=== PATIENT | female | born 1990 | race Caucasian/White ===

== ENCOUNTER 2017-10-22 21:22 | Inpatient (IN) | payer BC, OTHER ==
[2017-10-22] MEDS ORDERED: IPRATROPIUM-ALBUTEROL 3 ML NEB INHALATION STA ×3 (21:41→22:07)
[2017-10-22] MEDS ORDERED: methylPREDNISolone SOD SUCCI 125 MG/2 ML VIAL IV STA (21:53)
[2017-10-22] MEDS ORDERED: ONDANSETRON 4 MG/2 ML VIAL IVP STA (21:56)
[2017-10-22] MEDS ORDERED: SODIUM CHLORIDE 0.9% 1,000 ML IV STA ×2 (21:56→22:03)
--- NOTE | 2017-10-22 22:06 | ED ---
General Adult HPI - General Chief complaint: Shortness of Breath Stated complaint: Allergic Reaction Time Seen by Provider: 10/22/17 21:25 Source: patient, RN notes reviewed Mode of arrival: ambulatory Limitations: no limitations - History of Present Illness Initial comments: This is a 27-year-old female presents emergency part with a past medical history significant for asthma. Patient comes into the emergency department today with a 2 day history of shortness of breath or wheezing. Patient states she's had a typical asthmatic cough but no sputum production. Patient has no chest pain no palpitations. Patient denies any fever chills. Patient denies any headache patient denies numbness weakness. Patient denies abdominal pain patient denies nausea vomiting diarrhea. 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 Patient states she has been admitted for asthma but hasn't ever been intubated. - Related Data Home Medications Medication Instructions Recorded Confirmed Albuterol Inhaler [Ventolin Hfa 1 - 2 puff INHALATION RT-Q6H PRN 06/06/14 Inhaler] EPINEPHrine (Auto Inject) [Epipen] 0.3 mg IM ONCE PRN 06/06/14 10/22/17 Fluticasone/Salmeterol [Advair 1 puff INHALATION RT-BID 06/06/14 10/22/17 500-50 Diskus] Levalbuterol HCl [Xopenex 1.25 mg INHALATION RT-TID PRN 06/06/14 10/22/17 Nebulized] ALPRAZolam [Xanax] 0.25 mg PO DAILY PRN 10/22/17 10/22/17 ARIPiprazole [Abilify] 10 mg PO DAILY 10/22/17 10/22/17 Betamethasone Dipropionate 1 applic TOPICAL DAILY 10/22/17 10/22/17 [Diprolene AF 0.05% Cream] Cholecalciferol [Vitamin D3] 1,000 unit PO DAILY 10/22/17 10/22/17 [place]-3 Fatty Acids/Fish Oil [Fish 1 cap PO DAILY 10/22/17 10/22/17 Oil 1,000 mg Softgel] Sertraline [Zoloft] 100 mg PO DAILY 10/22/17 10/22/17 methylPREDNISolone Dose Pack 4 mg PO DIRECTED PRN 10/22/17 10/22/17 [Medrol Dose Pack] Previous Rx's Medication Instructions Recorded Montelukast [Singulair] 10 mg PO HS #30 tab 06/08/14 Allergies Allergy/AdvReac Type Severity Reaction Status Date / Time cefixime [From Suprax] Allergy Severe Anaphylaxis Verified 10/22/17 21:27 egg Allergy Severe Anaphylaxis Verified 10/22/17 21:27 Latex, Natural Rubber Allergy Severe Anaphylaxis Verified 10/22/17 21:27 monosodium glutamate Allergy Severe Anaphylaxis Verified 10/22/17 21:27 peanut Allergy Severe Anaphylaxis Verified 10/22/17 21:27 soy Allergy Severe Anaphylaxis Verified 10/22/17 21:27 tree nut Allergy Severe Anaphylaxis Verified 10/22/17 21: beans Allergy Severe Anaphylaxis Uncoded 10/22/17 21:27 dairy Allergy Severe Anaphylaxis Uncoded 10/22/17 21:27 fragrence Allergy Intermediate Wheezing Uncoded 10/22/17 21:27 Review of Systems ROS Statement: Those systems with pertinent positive or pertinent negative responses have been documented in the HPI. ROS Other: All systems not noted in ROS Statement are negative. Past Medical History Past Medical History: Asthma, COPD, Seizure Disorder History of Any Multi-Drug Resistant Organisms: None Reported Additional Past Surgical History / Comment(s): oral Additional Past Anesthesia/Blood Transfusion Reaction / Comment(s): none Past Psychological History: Anxiety Smoking Status: Never smoker Past Alcohol Use History: Occasional Past Drug Use History: None Reported - Past Family History Mother Family Medical History: Diabetes Mellitus, Hypertension General Exam - General Exam Comments Initial Comments: GENERAL: Patient is well-developed and well-nourished. Patient is nontoxic and well- hydrated and is in mild distress. ENT: Neck is soft and supple. No significant lymphadenopathy is noted. Oropharynx is clear. Moist mucous membranes. Neck has full range of motion without eliciting any pain. EYES: The sclera were anicteric and conjunctiva were pink and moist. Extraocular movements were intact and pupils were equal round and reactive to light. Eyelids were unremarkable. PULMONARY: Patient is diffusely wheezing CARDIOVASCULAR: There is a regular rate and rhythm without any murmurs gallops or rubs. ABDOMEN: Soft and nontender with normal bowel sounds. No palpable organomegaly was noted. There is no palpable pulsatile mass. SKIN: Skin is clear with no lesions or rashes and otherwise unremarkable. NEUROLOGIC: Patient is alert and oriented x3. Cranial nerves II through XII are grossly intact. Motor and sensory are also intact. Normal speech, volume and content. Symmetrical smile. MUSCULOSKELETAL: Normal extremities with adequate strength and full range of motion. LYMPHATICS: No significant lymphadenopathy is noted PSYCHIATRIC: Normal psychiatric evaluation. Limitations: no limitations Course Vital Signs 10/22/17 10/22/17 10/22/17 21:23 21:38 21:44 Temperature 97.4 F L Pulse Rate 115 H 124 H 114 H Respiratory 26 H 26 H Rate Blood Pressure 152/114 150/93 O2 Sat by Pulse 95 90 L Oximetry 10/22/17 10/22/17 10/22/17 21:54 21:55 22:03 Temperature Pulse Rate 118 H 116 H 113 H Respiratory 24 Rate Blood Pressure 150/93 O2 Sat by Pulse 100 Oximetry 10/22/17 10/22/17 10/22/17 22:05 22:06 22:21 Temperature Pulse Rate 118 H 108 H 104 H Respiratory 22 Rate Blood Pressure 129/54 O2 Sat by Pulse 97 Oximetry 10/22/17 22:22 Temperature Pulse Rate 104 H Respiratory Rate Blood Pressure O2 Sat by Pulse Oximetry Medical Decision Making - Medical Decision Making Chest x-ray showed no acute abnormality. Patient had 3 breathing treatments and Solu-Medrol I went back in the room to reevaluate if she continued to wheeze diffusely. Patient states she did feel somewhat better but was not at her baseline. I spoke with Dr. Lino agreed to admit the patient admitted the patient. I continued albuterol Solu-Medrol the floor - Lab Data Result diagrams: 10/22/17 22:01 Lab Results 10/22/17 Range/Units 22:01 WBC 15.7 H (3.8-10.6) k/uL RBC 4.58 (3.80-5.40) m/uL Hgb 14.4 (11.4-16.0) gm/dL Hct 42.3 (34.0-46.0) % MCV 92.5 (80.0-100.0) fL MCH 31.5 (25.0-35.0) pg MCHC 34.1 (31.0-37.0) g/dL RDW 12.8 (11.5-15.5) % Plt Count 243 (150-450) k/uL Neutrophils % 72 % Lymphocytes % 17 % Monocytes % 4 % Eosinophils % 6 % Basophils % 1 % Neutrophils # 11.2 H (1.3-7.7) k/uL Lymphocytes # 2.7 (1.0-4.8) k/uL Monocytes # 0.6 (0-1.0) k/uL Eosinophils # 1.0 H (0-0.7) k/uL Basophils # 0.1 (0-0.2) k/uL Disposition Clinical Impression: Status asthmaticus Disposition: ADMITTED IP TO THIS HOSP Referrals: Gal Desai MD [Primary Care Provider] - 1-2 days Time of Disposition: 22:36
[2017-10-22 22:13] LABS: Basophils # (A) 0.1 k/uL (0-0.2); Basophils % (A) 1 %; Eosinophils % (A) 6 %; HCT 42.3 % (34.0-46.0); HGB 14.4 gm/dL (11.4-16.0); Lymphocytes # (A) 2.7 k/uL (1.0-4.8); Lymphocytes % (A) 17 %; MCH 31.5 pg (25.0-35.0); MCHC 34.1 g/dL (31.0-37.0); MCV 92.5 fL (80.0-100.0); Monocytes # (A) 0.6 k/uL (0-1.0); Monocytes % (A) 4 %; Neutrophils # (A) 11.2 k/uL (1.3-7.7); Neutrophils % (A) 72 %; Platelet Count 243 k/uL (150-450); RBC 4.58 m/uL (3.80-5.40); RDW 12.8 % (11.5-15.5); WBC 15.7 k/uL (3.8-10.6)
[2017-10-22 22:35] LABS: ALT 26 U/L (9-52); AST 23 U/L (14-36); Albumin 4.3 g/dL (3.5-5.0); Alkaline Phosphatase 89 U/L (38-126); Anion Gap 14 mmol/L; Blood Urea Nitrogen 9 mg/dL (7-17); Calcium 9.7 mg/dL (8.4-10.2); Carbon Dioxide 23 mmol/L (22-30); Chloride 107 mmol/L (98-107); Glucose 111 mg/dL (74-99); Magnesium 1.8 mg/dL (1.6-2.3); Potassium 3.7 mmol/L (3.5-5.1); Sodium 144 mmol/L (137-145); Total Bilirubin 0.6 mg/dL (0.2-1.3); Total Protein 7.3 g/dL (6.3-8.2)
--- NOTE | 2017-10-22 22:45 | XR ---
EXAMINATION TYPE: XR chest 2V DATE OF EXAM: 10/22/2017 COMPARISON: 06/06/2014 HISTORY: Difficulty breathing TECHNIQUE: Frontal and lateral views of the chest are obtained. FINDINGS: Heart and mediastinum are normal. Lungs are clear. Diaphragm is normal. Bony thorax appear s normal. IMPRESSION: Normal chest. No change.
[2017-10-22 23:48] VITALS: BMI 37.0
[2017-10-22] MEDS: SODIUM CHLORIDE 0.9% 1,000 ML IV ONE (23:49)
[2017-10-22] MEDS: IPRATROPIUM-ALBUTEROL 3 ML NEB INHALATION SCH (23:50)
[2017-10-23] MEDS: IPRATROPIUM-ALBUTEROL 3 ML NEB INHALATION SCH ×4 (03:53→17:16)
[2017-10-23] MEDS: methylPREDNISolone SOD SUCCI 125 MG/2 ML VIAL IV SCH ×3 (06:27→18:07)
[2017-10-23 10:00] VITALS: RESP 20
[2017-10-23 11:43] VITALS: TEMP 97.6
[2017-10-23] MEDS ORDERED: ALPRAZolam 0.25 MG TAB PO PRN (11:44)
[2017-10-23] MEDS ORDERED: ARIPiprazole 10 MG TAB PO SCH (11:45)
[2017-10-23] MEDS: SODIUM CHLORIDE 0.9% 1,000 ML IV ONE (11:48)
[2017-10-23 16:21] VITALS: BP 120/78
[2017-10-23] MEDS ORDERED: ENOXAPARIN 40 MG/0.4 ML SYRINGE SQ SCH (18:15)
[2017-10-23 18:17] VITALS: PULSE 98
--- NOTE | 2017-10-23 19:05 | HP ---
HISTORY AND PHYSICAL HISTORY AND PHYSICAL AND DISCHARGE SUMMARY: DATE OF ADMISSION: 10/22/2017. DATE OF DISCHARGE: 10/23/2017. DATE OF SERVICE: 10/23/2017 PRESENTING COMPLAINT: Wheezing, short of breath. HISTORY OF PRESENTING COMPLAINT: This is a pleasant 27-year-old patient who is here with her mother, of Dr. Desai. The patient has been diagnosed asthma since her childhood. Recently the patient started doing vaping and presented with 24 hours of increasing amount of shortness of breath, wheezing, cough. No sputum. No fever. No chills. At home, patient does take Advair for maintenance. The patient also got anxiety depression, which is controlled. The patient was given bronchodilators, IV steroids to which she started feeling better and responded rather well. REVIEW OF SYSTEMS: CONSTITUTIONAL: None. HEENT: None. RESPIRATORY: As above. CARDIOVASCULAR: None. GASTROINTESTINAL: Denies. GENITOURINARY: None. MUSCULOSKELETAL: None. DERMATOLOGICAL: None. HEMATOLOGIC: None. LYMPHATIC: None. PSYCHIATRY: As above. NEUROLOGICAL: None. PAST MEDICAL HISTORY: Seizure disorder as a child, not anymore; anxiety, depression, controlled, asthma. PAST SURGICAL HISTORY: None. SOCIAL HISTORY: Patient does not smoke cigarettes, does vaping, lives with her mother, stays at home. Alcohol occasionally. FAMILY HISTORY: Diabetes, hypertension. HOME MEDICATIONS: 1. Abilify 10 mg a day. 2. Zoloft 100 mg a day. 3. Ventolin HFA 1 or 2 puffs every 6 hours p.r.n. 4. Fish oil 1 capsule p.o. daily. 5. Vitamin D3 1000 units p.o. daily. 6. Diprolene topical daily. 7. Medrol Dosepak. 8. EpiPen 0.3 IM p.r.n. 9. Xopenex 1.25 t.i.d. p.r.n. 10.Advair 500/50 one puff b.i.d. 11.Xanax 0.25 p.o. daily p.r.n. 12.Singulair 10 mg q.h.s. ALLERGIES: To SUPRAX, EGG, LATEX, MONOSODIUM GLUTAMATE, PEANUTS, SOY, TREE NUT MARINO, DAIRY FRAGRANCE. EXAMINATION: Temperature 97.6, pulse 86, respirations 20, blood pressure 120/78, pulse ox 92% on room air. GENERAL APPEARANCE: Well built, BMI 37. Lying in bed, not in distress. EYES: Pupils equal. Conjunctivae normal. HEENT: External appearance of nose and ears normal. Oral cavity normal. NECK: JVD not raised. Mass not palpable. RESPIRATORY: Effort increased. LUNGS: Some expiratory wheezing. CARDIOVASCULAR: First and second sounds normal. No edema. ABDOMEN: Soft, nontender. Liver and spleen not palpable. LYMPHATIC: No lymph node palpable in neck or axillae. PSYCHIATRY: Alert and oriented x3. Mood and affect normal. NEUROLOGICAL: Pupils equal. Cranial nerve grossly intact. Power and sensation grossly intact. DERMATOLOGICAL: Evidence of eczema in the fingers. INVESTIGATIONS: White count 15.7, hemoglobin 14.4. Potassium 3.7. ASSESSMENT: 1. Acute moderate obstructive asthma exacerbation by vaping. 2. Obesity, BMI 37. 3. Anxiety, depression, not otherwise specified. 4. Leukocytosis from steroids. PLAN: The patient admitted, put on nebulized bronchodilators, IV steroids to which she has responded rather well. I had a long talk with the patient's mother about the ill effects of vaping. The patient did state that she will stop doing the same. Will discharge the patient home later this evening with a rapid taper of steroids. DISPOSITION: Home. Follow up with Dr. Desai in 3 days. MMPHILL / MICHELLEN: [phone] /
[2017-10-23] MEDS ORDERED: MONTELUKAST 10 MG TAB PO SCH (21:00)
[2017-10-24] MEDS ORDERED: SERTRALINE 100 MG TAB PO SCH (09:00)
[2017-10-24] MEDS ORDERED: BETAMETHASONE DIPROPIONATE 0.05% CREAM 15 GM TUBE TOPICAL SCH (09:00)
== END 2017-10-23 19:07 | disposition home or self-care (01) | DRG 203 ==
LOC: EC 21:22 → 6PED 22:36
PROVIDERS: ADMIT Hospitalist; ATTEND Hospitalist
DX: J45.902 Unspecified asthma with status asthmaticus (principal); D72.829 Elevated white blood cell count, unspecified; T38.0X5A Adverse effect of glucocorticoids and synthetic analogues, initial encounter; E66.9 Obesity, unspecified; Z68.37 Body mass index [BMI] 37.0-37.9, adult; F17.290 Nicotine dependence, other tobacco product, uncomplicated; F41.8 Other specified anxiety disorders; Z77.29 Contact with and (suspected) exposure to other hazardous substances; Z79.51 Long term (current) use of inhaled steroids; Z79.899 Other long term (current) drug therapy; Z86.69 Personal history of other diseases of the nervous system and sense organs; Z83.3 Family history of diabetes mellitus; Z82.49 Family history of ischemic heart disease and other diseases of the circulatory system; Z88.1 Allergy status to other antibiotic agents; Z91.012 Allergy to eggs; Z91.02 Food additives allergy status; Z91.040 Latex allergy status; Z91.011 Allergy to milk products; Z91.010 Allergy to peanuts; Z91.018 Allergy to other foods; Z91.048 Other nonmedicinal substance allergy status
CPT/HCPCS: 36415; 71046; 80053; 83735; 85025; 94640; 94760; 96361; 96374; 99285

== ENCOUNTER 2023-08-06 19:35 | Emergency (ER) | payer SELFPAY ==
--- NOTE | 2023-08-06 20:00 | ED ---
Extremity Problem HPI - General Source: patient, RN notes reviewed <Shannon Quiñonez - Last Filed: 08/06/23 19:58> <Abe Ge - Last Filed: 08/06/23 20:51> - General Stated complaint: extremity injury Time Seen by Provider: 08/06/23 19:58 - History of Present Illness Initial comments: Patient is a 33-year-old female presented ER with chief complaint of left thumb injury. Patient states she pinched her thumb in between the wall and the refrigerator. Patient is now stating it is numb. Denies any other injuries. (Shannon Quiñonez) 33-year-old female presents to the ED with a chief complaint of left thumb injury. Patient states that she actually got her thumb caught between the wall and the fridge door. Now notes pain and subjective numbness in her left thumb. No other injuries at this time. No other complaints. (Abe Ge) - Related Data Home Medications Medication Instructions Recorded Confirmed Albuterol Inhaler [Ventolin Hfa 1 - 2 puff INHALATION RT-Q6H PRN 06/06/14 10/22/17 Inhaler] EPINEPHrine (Auto Inject) [Epipen] 0.3 mg IM ONCE PRN 06/06/14 10/22/17 Fluticasone Propion/Salmeterol 1 puff INHALATION RT-BID 06/06/14 10/22/17 [Advair 500-50 Diskus] levalbuterol HCL [Xopenex 1.25 mg INHALATION RT-TID PRN 06/06/14 10/22/17 Nebulized] ALPRAZolam [Xanax] 0.25 mg PO DAILY PRN 10/22/17 10/22/17 ARIPiprazole [Abilify] 10 mg PO DAILY 10/22/17 10/22/17 Betamethasone Dipropionate 1 applic TOPICAL DAILY 10/22/17 10/22/17 [Diprolene 0.05% Cream (GEQ)] Cholecalciferol [Vitamin D3 (25 1,000 unit PO DAILY 10/22/17 10/22/17 Mcg = 1000 Iu)] [place]-3 Fatty Acids/Fish Oil [Fish 1 cap PO DAILY 10/22/17 10/22/17 Oil 1,000 mg Softgel] Sertraline [Zoloft] 100 mg PO DAILY 10/22/17 10/22/17 Previous Rx's Medication Instructions Recorded Montelukast [Singulair] 10 mg PO HS #30 tab 06/08/14 predniSONE 0 mg PO DIRECTED #10 tab 10/23/17 Allergies Allergy/AdvReac Type Severity Reaction Status Date / Time cefixime [From Suprax] Allergy Severe Anaphylaxis Verified 10/22/17 23:53 egg Allergy Severe Anaphylaxis Verified 10/22/17 23:53 Latex, Natural Rubber Allergy Severe Anaphylaxis Verified 10/22/17 23:53 monosodium glutamate Allergy Severe Anaphylaxis Verified 10/22/17 23:53 peanut Allergy Severe Anaphylaxis Verified 10/22/17 23:53 soy Allergy Severe Anaphylaxis Verified 10/22/17 23:53 tree nut Allergy Severe Anaphylaxis Verified 10/22/17 23:53 beans Allergy Severe Anaphylaxis Uncoded 10/22/17 23:53 dairy Allergy Severe Anaphylaxis Uncoded 10/22/17 23:53 fragrence Allergy Intermediate Wheezing Uncoded 10/22/17 23:53 Review of Systems ROS Other: All systems not noted in ROS Statement are negative. <Shannon Quiñonez - Last Filed: 08/06/23 19:58> ROS Other: All systems not noted in ROS Statement are negative. <Abe Ge - Last Filed: 08/06/23 20:51> ROS Statement: Those systems with pertinent positive or pertinent negative responses have been documented in the HPI. Past Medical History Past Medical History: Asthma, COPD, Seizure Disorder Additional Past Medical History / Comment(s): Last seizure was in high school. History of Any Multi-Drug Resistant Organisms: None Reported Additional Past Surgical History / Comment(s): oral Additional Past Anesthesia/Blood Transfusion Reaction / Comment(s): none Past Psychological History: Anxiety Past Alcohol Use History: Occasional Past Drug Use History: None Reported - Past Family History Mother Family Medical History: Diabetes Mellitus, Hypertension <Shannon Quiñonez - Last Filed: 08/06/23 19:58> General Exam <Shannon Quiñonez - Last Filed: 08/06/23 19:58> General appearance: alert, in no apparent distress Eye exam: Present: normal appearance ENT exam: Present: normal exam Neck exam: Present: normal inspection Respiratory exam: Present: normal lung sounds bilaterally Cardiovascular Exam: Present: regular rate, normal rhythm GI/Abdominal exam: Present: soft Extremities exam: Present: other (Left first digit has a subungual hematoma. Full flexion extension and opposition. Sensation intact.) Neurological exam: Present: alert, oriented X3 Skin exam: Present: warm, dry <Abe Ge - Last Filed: 08/06/23 20:51> - General Exam Comments Initial Comments: Visual Physical Exam Vital signs reviewed General: Well-appearing, nontoxic, no acute distress. Head: Normocephalic, atraumatic Eyes: PERRLA, EOMI ENT: Airway patent Chest: Nonlabored breathing Skin: No visual rash, normal skin tone Neuro: Alert and oriented 3 Musculoskeletal: Left thumb is bruised and swollen. (Shannon Quiñonez) Course Vital Signs 08/06/23 20:01 Temperature 97.8 F Pulse Rate 87 Respiratory 18 Rate Blood Pressure 146/83 O2 Sat by Pulse 98 Oximetry Medical Decision Making <Shannon Quiñonez - Last Filed: 08/06/23 19:58> <Abe Ge - Last Filed: 08/06/23 20:51> - Medical Decision Making I performed the quick note portion of this chart. Electronically signed Shannon mclaughlin PA-C (Shannon Quiñonez) Was pt. sent in by a medical professional or institution (FERDINAND Childers, OPERATIONS COORDINATOR, urgent care, hospital, or longterm...) When possible be specific @ -No Did you speak to anyone other than the patient for history (EMS, parent, family, police, friend...)? What history was obtained from this source @ -No Did you review nursing and triage notes (agree or disagree)? Why? @ -I reviewed and agree with nursing and triage notes Were old charts reviewed (outside hosp., previous admission, EMS record, old EKG, old radiological studies, urgent care reports/EKG's, longterm records)? Report findings @ -No old charts were reviewed Differential Diagnosis (chest pain, altered mental status, abdominal pain women, abdominal pain men, vaginal bleeding, weakness, fever, dyspnea, syncope, headache, dizziness, GI bleed, back pain, seizure, CVA, palpatations, mental health, musculoskeletal)? @ -Differential Musculoskeletal Muscular strain, contusion, ligament sprain, fracture, arthritis, septic arthritis, bursitis, cellulitis, muscle spasm, nerve compression, DVT, arterial occlusion, herpes zoster, electrolyte abnormality, tumor.... This is not meant to be in all inclusive list EKG interpreted by me (3pts min.). @ -None X-rays interpreted by me (1pt min.). @ -X-ray of the left thumb interpreted me showing no evidence of acute finding. CT interpreted by me (1pt min.). @ -None done U/S interpreted by me (1pt. min.). @ -None done What testing was considered but not performed or refused? (CT, X-rays, U/S, labs)? Why? @ -None What meds were considered but not given or refused? Why? @ -None Did you discuss the management of the patient with other professionals (professionals i.e. , PA, OPERATIONS COORDINATOR, lab, RT, psych nurse, group social worker, divider operator, teacher, classification officer, trimming caser)? Give summary @ -No Was smoking cessation discussed for >3mins.? @ -No Was critical care preformed (if so, how long)? @ -No Were there social determinants of health that impacted care today? How? (Homelessness, low income, unemployed, alcoholism, drug addiction, transportation, low edu. Level, literacy, decrease access to med. care, penitentiary, rehab)? @ -No Was there de-escalation of care discussed even if they declined (Discuss DNR or withdrawal of care, Hospice)? DNR status @ -No What co-morbidities impacted this encounter? (DM, HTN, Smoking, COPD, CAD, Cancer, CVA, ARF, Chemo, Hep., AIDS, mental health diagnosis, sleep apnea, morbid obesity)? @ -None Was patient admitted / discharged? Hospital course, mention meds given and route, prescriptions, significant lab abnormalities, going to OR and other pertinent info. @ -Discharge 33-year-old female presents to the ED with a chief complaint of left thumb injury after smashing it between the fridge door and the wall. Exam shows full flexion extension and opposition of the thumb. There is a subungual hematoma. Patient was offered trepanation however declined. Discharged home in stable condition. Advise follow-up with PCP. Discussed return precaution patient verbalized agreement. Undiagnosed new problem with uncertain prognosis? @ -No Drug Therapy requiring intensive monitoring for toxicity (Heparin, Nitro, Insulin, Cardizem)? @ -No Were any procedures done? @ -No Diagnosis/symptom? @ -Left thumb injury, subungual hematoma Acute, or Chronic, or Acute on Chronic? @ -Acute Uncomplicated (without systemic symptoms) or Complicated (systemic symptoms)? @ -Uncomplicated Side effects of treatment? @ -No Exacerbation, Progression, or Severe Exacerbation? @ -No Poses a threat to life or bodily function? How? (Chest pain, [place], [place], pneumonia, PE, COPD, DKA, ARF, appy, cholecystitis, CVA, Diverticulitis, Homicidal, Suicidal, threat to staff... and all critical care pts) @ -No (Abe Ge) Disposition <Shannon Quiñonez - Last Filed: 08/06/23 19:58> Is patient prescribed a controlled substance at d/c from ED?: No Time of Disposition: 20:47 <Abe Ge - Last Filed: 08/06/23 20:51> Clinical Impression: Subungual hematoma Disposition: HOME SELF-CARE Condition: Good Instructions (If sedation given, give patient instructions): Subungual Hematoma (ED) Additional Instructions: Please return to the Emergency Department if symptoms worsen or any other concerns. Please follow-up with your PCP Referrals: None,Stated [Primary Care Provider] - 1-2 days
--- NOTE | 2023-08-06 20:08 | XR ---
EXAMINATION TYPE: XR finger LT DATE OF EXAM: 08/06/2023 8:00 PM CLINICAL INDICATION:Female, 33 years old with history of crush injury; COMPARISON: None TECHNIQUE: XR finger LT Frontal, lateral and oblique views were obtained. FINDINGS: Normal alignment of the visualized joints. No acute osseous pathology is identified. No e vidence of soft tissue swelling. IMPRESSION: No acute osseous pathology.
[2023-08-06 20:12] VITALS: BP 146/83; PULSE 87; RESP 18; TEMP 97.8
== END 2023-08-06 20:55 | disposition home or self-care (01) ==
LOC: EC 19:35
DX: S60.112A Contusion of left thumb with damage to nail, initial encounter (principal); J44.89 Other specified chronic obstructive pulmonary disease; F41.9 Anxiety disorder, unspecified; Z79.899 Other long term (current) drug therapy; Z79.51 Long term (current) use of inhaled steroids; Z91.012 Allergy to eggs; Z91.040 Latex allergy status; Z91.010 Allergy to peanuts; Z91.018 Allergy to other foods; Z88.8 Allergy status to other drugs, medicaments and biological substances; W23.0XXA Caught, crushed, jammed, or pinched between moving objects, initial encounter
CPT/HCPCS: 99283

== ENCOUNTER 2024-06-04 19:08 | Inpatient (IN) | payer OTHER ==
--- NOTE | 2024-06-04 19:16 | ED ---
SOB HPI - General Stated Complaint: LEYDI Time Seen by Provider: 06/04/24 19:12 Source: RN notes reviewed, old records reviewed Mode of arrival: EMS Limitations: physical limitation (On BiPAP) - History of Present Illness Initial Comments: This is a 34-year-old female with respiratory failure coming, BiPAP treatment despite 10+ breathing treatments at home tonight secondary to underlying asthma patient has worsening respiratory distress increasing work of breathing and a poor historian secondary to BiPAP condition currently MD Complaint: shortness of breath, chest pain, "asthma attack", anxiety -: hour(s) Severity: severe Severity scale (1-10): 10 Consistency: constant Improves With: nothing Known History Of: COPD, asthma Context: recent URI, anxiety, recent illness Associated Symptoms: cough, sputum production Treatments Prior to Arrival: bronchodilator, NIPPV - Related Data Home Medications Medication Instructions Recorded Confirmed Albuterol Inhaler [Ventolin Hfa 1 - 2 puff INHALATION RT-Q6H PRN 06/06/14 10/22/17 Inhaler] EPINEPHrine (Auto Inject) [Epipen] 0.3 mg IM ONCE PRN 06/06/14 10/22/17 Fluticasone Propion/Salmeterol 1 puff INHALATION RT-BID 06/06/14 10/22/17 [Advair 500-50 Diskus] levalbuterol HCL [Xopenex 1.25 mg INHALATION RT-TID PRN 06/06/14 10/22/17 Nebulized] ALPRAZolam [Xanax] 0.25 mg PO DAILY PRN 10/22/17 10/22/17 ARIPiprazole [Abilify] 10 mg PO DAILY 10/22/17 10/22/17 Betamethasone Dipropionate 1 applic TOPICAL DAILY 10/22/17 10/22/17 [Betamethasone Dipropionate 0.05% Cream] Cholecalciferol [Vitamin D3 (25 1,000 unit PO DAILY 10/22/17 10/22/17 Mcg = 1000 Iu)] [place]-3 Fatty Acids/Fish Oil [Fish 1 cap PO DAILY 10/22/17 10/22/17 Oil 1,000 mg Softgel] Sertraline [Zoloft] 100 mg PO DAILY 10/22/17 10/22/17 Previous Rx's Medication Instructions Recorded Montelukast [Singulair] 10 mg PO HS #30 tab 06/08/14 predniSONE 0 mg PO DIRECTED #10 tab 10/23/17 Allergies Allergy/AdvReac Type Severity Reaction Status Date / Time cefixime [From Suprax] Allergy Severe Anaphylaxis Verified 10/22/17 23:53 egg Allergy Severe Anaphylaxis Verified 10/22/17 23:53 Latex, Natural Rubber Allergy Severe Anaphylaxis Verified 10/22/17 23:53 monosodium glutamate Allergy Severe Anaphylaxis Verified 10/22/17 23:53 peanut Allergy Severe Anaphylaxis Verified 10/22/17 23:53 soy Allergy Severe Anaphylaxis Verified 10/22/17 23:53 tree nut Allergy Severe Anaphylaxis Verified 10/22/17 23:53 beans Allergy Severe Anaphylaxis Uncoded 10/22/17 23:53 dairy Allergy Severe Anaphylaxis Uncoded 10/22/17 23:53 fragrence Allergy Intermediate Wheezing Uncoded 10/22/17 23:53 Review of Systems ROS Statement: Those systems with pertinent positive or pertinent negative responses have been documented in the HPI. ROS Other: All systems not noted in ROS Statement are negative. Past Medical History Past Medical History: Asthma, COPD, Seizure Disorder Additional Past Medical History / Comment(s): Last seizure was in high school. History of Any Multi-Drug Resistant Organisms: None Reported Additional Past Surgical History / Comment(s): oral Additional Past Anesthesia/Blood Transfusion Reaction / Comment(s): none Past Psychological History: Anxiety Past Alcohol Use History: Occasional Past Drug Use History: None Reported - Past Family History Mother Family Medical History: Diabetes Mellitus, Hypertension General Exam General appearance: alert, anxious, in distress Head exam: Present: atraumatic, normocephalic, normal inspection Eye exam: Present: normal appearance, PERRL, EOMI. Absent: scleral icterus, conjunctival injection, periorbital swelling ENT exam: Present: normal exam, mucous membranes moist Neck exam: Present: normal inspection. Absent: tenderness, meningismus, lymphadenopathy Respiratory exam: Present: wheezes, accessory muscle use. Absent: respiratory distress, rales, rhonchi, stridor Cardiovascular Exam: Present: normal rhythm, tachycardia, normal heart sounds. Absent: systolic murmur, diastolic murmur, rubs, gallop, clicks GI/Abdominal exam: Present: soft, normal bowel sounds. Absent: distended, tenderness, guarding, rebound, rigid Extremities exam: Present: normal inspection, full ROM, normal capillary refill. Absent: tenderness, pedal edema, joint swelling, calf tenderness Back exam: Present: normal inspection Neurological exam: Present: alert, oriented X3, CN II-XII intact Psychiatric exam: Present: normal affect, normal mood Skin exam: Present: warm, dry, intact, normal color. Absent: rash Course Vital Signs 06/04/24 06/04/24 06/04/24 19:09 19:12 19:26 Temperature 100.0 F H Pulse Rate 147 H 147 H Respiratory 34 H Rate Blood Pressure 138/105 O2 Sat by Pulse 100 Oximetry Fraction of 35 Inspired Oxygen (FIO2) 06/04/24 06/04/24 19:39 19:54 Temperature Pulse Rate 149 H 138 H Respiratory 37 H Rate Blood Pressure 108/93 O2 Sat by Pulse 100 Oximetry Fraction of Inspired Oxygen (FIO2) - Reevaluation(s) Reevaluation #1: 06/04/24 19:15 Medical records reviewed Reevaluation #2: 06/04/24 20:22 Patient still in significant respiratory distress despite BiPAP treatment Reevaluation #3: 06/04/24 20:23 Patient informed of results questions answered Reevaluation #4: Was pt. sent in by a medical professional or institution (, PA, REAL ESTATE ASSET MANAGER, urgent care, hospital, or senior care...) When possible be specific @ -no Did you speak to anyone other than the patient for history (EMS, parent, family, police, friend...)? What history was obtained from this source @ -no Did you review nursing and triage notes (agree or disagree)? Why? @ -agree Are old charts reviewed (outside hosp., previous admission, EMS record, old EKG, old radiological studies, urgent care reports/EKG's, senior care records)? Report findings @ -yes Differential Diagnosis (chest pain, altered mental status, abdominal pain women, abdominal pain men, vaginal bleeding, weakness, fever, dyspnea, syncope, headache, dizziness, GI bleed, back pain, seizure, CVA, palpatations, mental health, musculoskeletal)? @ -prior EKG interpreted by me (3pts min.). @ -yes X-rays interpreted by me (1pt min.). @ -yes negative for acute disease CT interpreted by me (1pt min.). @ -no U/S interpreted by me (1pt. min.). @ -no What testing was considered but not performed or refused? (CT, X-rays, U/S, lab s)? Why? @ -none What meds were considered but not given or refused? Why? @ -none Did you discuss the management of the patient with other professionals (professionals i.e. , PA, REAL ESTATE ASSET MANAGER, lab, RT, psych nurse, social studies teacher, operator bearer systems, teacher, corporate development officer, nurse case manager)? Give summary @ -no Was smoking cessation discussed for >3mins.? @ -no Was critical care preformed (if so, how long)? @ -no Were there social determinants of health that impacted care today? How? (Homelessness, low income, unemployed, alcoholism, drug addiction, transportation, low edu. Level, literacy, decrease access to med. care, senior care, rehab)? @ -none Was there de-escalation of care discussed even if they declined (Discuss DNR or withdrawal of care, Hospice)? DNR status @ -no What co-morbidities impacted this encounter? (DM, HTN, Smoking, COPD, CAD, Cancer, CVA, ARF, Chemo, Hep., AIDS, mental health diagnosis, sleep apnea, morbid obesity)? @ -none Was patient admitted / discharged? Hospital course, mention meds given and route, prescriptions, significant lab abnormalities, going to OR and other pertinent info. @ - Undiagnosed new problem with uncertain prognosis? @ -no Drug Therapy requiring intensive monitoring for toxicity (Heparin, Nitro, Insulin, Cardizem)? @ -no Were any procedures done? @ -no Diagnosis/symptom? @ - Acute, or Chronic, or Acute on Chronic? @ -Acute Uncomplicated (without systemic symptoms) or Complicated (systemic symptoms)? @ -Complicated Side effects of treatment? @ -no Exacerbation, Progression, or Severe Exacerbation? @ -exacerbation Poses a threat to life or bodily function? How? (Chest pain, [place], [place], pneumonia, PE, COPD, DKA, ARF, appy, cholecystitis, CVA, Diverticulitis, Homicidal, Suicidal, threat to staff... and all critical care pts) @ -yes Reevaluation #5: Differential Dyspnea: Coronary syndrome, arrhythmia, tamponade, asthma, COPD, pulmonary embolism, pneumonia, pneumothorax, pulmonary effusion, anaphylaxis, diabetic ketoacidosis, flailed chest, pulmonary contusion, diaphragmatic rupture, anemia, neuromuscular, this is not meant to be an all-inclusive list. - Consultations Consultation #1: Spoke with [facility] who agrees to admit this patient Medical Decision Making - Medical Decision Making 34 female with acute respiratory failure asthmatic respiratory failure, patient is acidotic with increased pCO2, patient will be admitted for continued BiPAP support - Lab Data Result diagrams: 06/04/24 19:18 06/04/24 19:18 Lab Results 06/04/24 06/04/24 06/04/24 Range/Units 19:18 19:18 19:18 WBC 13.7 H (3.8-10.6) k/uL RBC 4.77 (3.80-5.40) m/uL Hgb 14.8 (11.4-16.0) gm/dL Hct 44.0 (34.0-46.0) % MCV 92.3 (80.0-100.0) fL MCH 30.9 (25.0-35.0) pg MCHC 33.5 (31.0-37.0) g/dL RDW 12.1 (11.5-15.5) % Plt Count 259 (150-450) k/uL MPV 8.1 Neutrophils % 69 % Lymphocytes % 19 % Monocytes % 4 % Eosinophils % 6 % Basophils % 1 % Neutrophils # 9.4 H (1.3-7.7) k/uL Lymphocytes # 2.6 (1.0-4.8) k/uL Monocytes # 0.6 (0-1.0) k/uL Eosinophils # 0.8 H (0-0.7) k/uL Basophils # 0.1 (0-0.2) k/uL PT 10.5 (10.0-12.5) sec INR 0.9 (<1.2) APTT 23.5 (22.0-30.0) sec D-Dimer 0.60 H (<0.60) mg/L FEU VBG pH (7.31-7.41) VBG pCO2 (37-51) mmHg VBG HCO3 (24-28) mmol/L Sodium 141 (137-145) mmol/L Potassium 4.0 (3.5-5.1) mmol/L Chloride 105 (98-107) mmol/L Carbon Dioxide 26 (22-30) mmol/L Anion Gap 10 mmol/L BUN 8 (7-17) mg/dL Creatinine 0.86 (0.52-1.04) mg/dL Est GFR (CKD-EPI)AfAm >90 (>60 ml/min/1.73 sqM) Est GFR (CKD-EPI)NonAf 89 (>60 ml/min/1.73 sqM) Glucose 119 H (74-99) mg/dL Plasma Lactic Acid South (0.7-2.0) mmol/L Calcium 9.5 (8.4-10.2) mg/dL Magnesium 1.8 (1.6-2.3) mg/dL Total Bilirubin 0.9 (0.2-1.3) mg/dL AST 20 (14-36) U/L ALT 19 (4-34) U/L Alkaline Phosphatase 116 (38-126) U/L Troponin I (0.000-0.034) ng/mL NT-Pro-B Natriuret Pep 100 pg/mL Total Protein 7.5 (6.3-8.2) g/dL Albumin 4.4 (3.5-5.0) g/dL 06/04/24 06/04/24 06/04/24 Range/Units 19:18 19:18 19:18 WBC (3.8-10.6) k/uL RBC (3.80-5.40) m/uL Hgb (11.4-16.0) gm/dL Hct (34.0-46.0) % MCV (80.0-100.0) fL MCH (25.0-35.0) pg MCHC (31.0-37.0) g/dL RDW (11.5-15.5) % Plt Count (150-450) k/uL MPV Neutrophils % % Lymphocytes % % Monocytes % % Eosinophils % % Basophils % % Neutrophils # (1.3-7.7) k/uL Lymphocytes # (1.0-4.8) k/uL Monocytes # (0-1.0) k/uL Eosinophils # (0-0.7) k/uL Basophils # (0-0.2) k/uL PT (10.0-12.5) sec INR (<1.2) APTT (22.0-30.0) sec D-Dimer (<0.60) mg/L FEU VBG pH 7.20 L* (7.31-7.41) VBG pCO2 72 H* (37-51) mmHg VBG HCO3 28 (24-28) mmol/L Sodium (137-145) mmol/L Potassium (3.5-5.1) mmol/L Chloride (98-107) mmol/L Carbon Dioxide (22-30) mmol/L Anion Gap mmol/L BUN (7-17) mg/dL Creatinine (0.52-1.04) mg/dL Est GFR (CKD-EPI)AfAm (>60 ml/min/1.73 sqM) Est GFR (CKD-EPI)NonAf (>60 ml/min/1.73 sqM) Glucose (74-99) mg/dL Plasma Lactic Acid South 1.0 (0.7-2.0) mmol/L Calcium (8.4-10.2) mg/dL Magnesium (1.6-2.3) mg/dL Total Bilirubin (0.2-1.3) mg/dL AST (14-36) U/L ALT (4-34) U/L Alkaline Phosphatase (38-126) U/L Troponin I <0.012 (0.000-0.034) ng/mL NT-Pro-B Natriuret Pep pg/mL Total Protein (6.3-8.2) g/dL Albumin (3.5-5.0) g/dL - EKG Data -: EKG Interpreted by Me (EKG sinus tachycardia 146 MI 121 QRS 101 QTc 410) - Radiology Data Radiology results: report reviewed (Chest x-ray is negative for acute disease), image reviewed Critical Care Time Critical Care Time: Yes Total Critical Care Time: 31 Disposition Clinical Impression: Acute exacerbation of chronic obstructive pulmonary disease, Asthma with acute exacerbation, Status asthmaticus, Asthma with exacerbation, Acute respiratory failure Disposition: ADMITTED IP TO THIS HOSP Condition: Serious Is patient prescribed a controlled substance at d/c from ED?: No Referrals: None,Stated [Primary Care Provider] - 1-2 days Time of Disposition: 20:20
[2024-06-04] MEDS: ALBUTEROL NEBULIZED 2.5 MG/3 ML INHALATION STA (19:19)
[2024-06-04] MEDS: IPRATROPIUM 0.5 MG/2.5 ML NEBU INHALATION STA (19:19)
[2024-06-04] MEDS: LORazepam 2 MG/ML INJ IV STA (19:31)
[2024-06-04] MEDS: methylPREDNISolone SOD SUCCI 125 MG/2 ML VIAL IV STA (19:31)
[2024-06-04 19:34] LABS: Basophils # (A) 0.1 k/uL (0-0.2); Basophils % (A) 1 %; Eosinophils # (A) 0.8 k/uL (0-0.7); Eosinophils % (A) 6 %; HGB 14.8 gm/dL (11.4-16.0); Lymphocytes # (A) 2.6 k/uL (1.0-4.8); Lymphocytes % (A) 19 %; MCH 30.9 pg (25.0-35.0); MCHC 33.5 g/dL (31.0-37.0); MCV 92.3 fL (80.0-100.0); Mean Platelet Volume 8.1; Monocytes # (A) 0.6 k/uL (0-1.0); Monocytes % (A) 4 %; Neutrophils # (A) 9.4 k/uL (1.3-7.7); Neutrophils % (A) 69 %; Platelet Count 259 k/uL (150-450); RBC 4.77 m/uL (3.80-5.40); RDW 12.1 % (11.5-15.5); WBC 13.7 k/uL (3.8-10.6)
[2024-06-04] MEDS: MORPHINE SULFATE 2 MG/ML SYRINGE IVP STA (19:36)
--- NOTE | 2024-06-04 19:36 | XR ---
EXAMINATION TYPE: XR chest 1V portable DATE OF EXAM: 06/04/2024 7:25 PM COMPARISON: 2017 CLINICAL INDICATION: Female, 34 years old with history of sob'; [facility] TECHNIQUE: XR chest 1V portable Frontal view of the chest. FINDINGS: Lungs/Pleura: There is no evidence of pleural effusion, focal consolidation, or pneumothorax. Pulmonary vascularity: Unremarkable. Heart/mediastinum: Cardiomediastinal silhouette is unremarkable. Musculoskeletal: No acute osseous pathology. IMPRESSION: No acute cardiopulmonary disease/process. [facility], , 06/04/2024 7:33 PM
[2024-06-04 19:39] LABS: VBG PH 7.2 (7.31-7.41)
[2024-06-04] MEDS: SODIUM CHLORIDE 0.9% 1,000 ML IV STA ×3 (19:40→22:04)
[2024-06-04] MEDS: SODIUM CHLORIDE 0.9% 500 ML 500 ML IV STA (19:43)
[2024-06-04 19:53] LABS: ALT 19 U/L (4-34); AST 20 U/L (14-36); African American GFR (CKD) >90 (>60 ml/min/1.73 sqM); Albumin 4.4 g/dL (3.5-5.0); Alkaline Phosphatase 116 U/L (38-126); Anion Gap 10 mmol/L; Blood Urea Nitrogen 8 mg/dL (7-17); Calcium 9.5 mg/dL (8.4-10.2); Carbon Dioxide 26 mmol/L (22-30); Chloride 105 mmol/L (98-107); Glucose 119 mg/dL (74-99); Magnesium 1.8 mg/dL (1.6-2.3); Non-African American GFR(CKD) 89 (>60 ml/min/1.73 sqM); Sodium 141 mmol/L (137-145); Total Bilirubin 0.9 mg/dL (0.2-1.3); Total Protein 7.5 g/dL (6.3-8.2)
[2024-06-04 19:58] LABS: INR 0.9 (<1.2); Prothrombin Time 10.5 sec (10.0-12.5)
[2024-06-04 19:59] LABS: Partial Thromboplastin Time 23.5 sec (22.0-30.0)
[2024-06-04 20:02] LABS: NT-Pro-B-Type Natriuretic Pept 100 pg/mL
[2024-06-04] MEDS: IBUPROFEN IV 800 MG in SODIUM CHLORIDE 0.9% 250 ML IV ONE (20:05)
[2024-06-04] MEDS ORDERED: NALOXONE 0.4 MG/ML 1 ML VIAL IV PRN (20:23)
[2024-06-04] MEDS ORDERED: NALOXONE 0.4 MG/ML 1 ML VIAL IVP PRN (20:23)
[2024-06-04] MEDS ORDERED: MORPHINE SULFATE 2 MG/ML SYRINGE IV PRN (20:23)
[2024-06-04] MEDS ORDERED: ONDANSETRON 4 MG/2 ML VIAL IVP PRN (20:23)
[2024-06-04] MEDS: PANTOPRAZOLE 40 MG/10 ML VIAL IV SCH (20:38)
[2024-06-04] MEDS: ACETAMINOPHEN IV (For NPO) 1,000 MG in EMPTY BAG 1 BAG IVPB STA (20:41)
[2024-06-04] MEDS: IPRATROPIUM-ALBUTEROL 3 ML NEB INHALATION STA (21:07)
[2024-06-04] MEDS: MAGNESIUM SULFATE-D5W PMX 1 GM in DEXTROSE/WATER 1 100ML.BAG IVPB SCH (22:04)
[2024-06-04] MEDS: TERBUTALINE 1 MG/ML VIAL SQ STA (22:07)
[2024-06-04] MEDS: methylPREDNISolone SOD SUCCI 125 MG/2 ML VIAL IV SCH (23:08)
[2024-06-05 01:37] LABS: Basophils % (A) 0 %; Eosinophils # (A) 0.1 k/uL (0-0.7); Eosinophils % (A) 1 %; HCT 40.1 % (34.0-46.0); HGB 13.3 gm/dL (11.4-16.0); Lymphocytes # (A) 0.6 k/uL (1.0-4.8); Lymphocytes % (A) 5 %; MCHC 33.1 g/dL (31.0-37.0); MCV 93.7 fL (80.0-100.0); Mean Platelet Volume 8.3; Monocytes # (A) 0.1 k/uL (0-1.0); Monocytes % (A) 1 %; Neutrophils # (A) 12.3 k/uL (1.3-7.7); Neutrophils % (A) 93 %; Platelet Count 225 k/uL (150-450); RBC 4.28 m/uL (3.80-5.40); RDW 12.3 % (11.5-15.5); WBC 13.2 k/uL (3.8-10.6)
[2024-06-05 01:49] LABS: AST 20 U/L (14-36); African American GFR (CKD) >90 (>60 ml/min/1.73 sqM); Albumin 3.8 g/dL (3.5-5.0); Alkaline Phosphatase 95 U/L (38-126); Anion Gap 14 mmol/L; Blood Urea Nitrogen 7 mg/dL (7-17); Calcium 8.7 mg/dL (8.4-10.2); Carbon Dioxide 17 mmol/L (22-30); Chloride 109 mmol/L (98-107); Glucose 192 mg/dL (74-99); Magnesium 2.2 mg/dL (1.6-2.3); Non-African American GFR(CKD) >90 (>60 ml/min/1.73 sqM); Potassium 3.5 mmol/L (3.5-5.1); Sodium 140 mmol/L (137-145); Total Bilirubin 0.6 mg/dL (0.2-1.3); Total Protein 6.5 g/dL (6.3-8.2)
[2024-06-05 01:55] LABS: ALT 25 U/L (4-34)
[2024-06-05] MEDS ORDERED: IPRATROPIUM-ALBUTEROL 3 ML NEB INHALATION PRN (05:06)
--- NOTE | 2024-06-05 05:39 | P.CNPUL ---
History of Present Illness Consult date: 06/05/24 Requesting physician: Gal Mims Reason for consult: asthma Chief complaint: Respiratory distress History of present illness: Patient is a 34-year-old female with past medical history significant for severe chronic bronchial asthma. Uses combination of Advair and albuterol while at h ome. She has had no recent ER visits in the last year. Uses her rescue inhaler on average 1 time per day. Currently, does not have a primary care provider or repairer shoe sticks, she is just moved back from [place]. 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 States that about 2 weeks ago, she was at a job site and exposed to significant drywall dust and insulation, which flared up her asthma. She was not wearing her mask. Her respiratory status never really returned to baseline. Denies smoking. She denies any infectious-like symptoms. Although, has had a persistent nonproductive cough and wheezing. She presented to emergency department yesterday in a state of respiratory distress and was placed on BiPAP with initial settings 12/5 with an FiO2 currently 35%. She is not tachypneic. She is achieving tidal volumes around 500. She is alert and calm. I was able to easily wean her down to 2 L/min nasal cannula. Chest x-ray does not show any focal consolidations or pneumonia. CBC: WBC count 13.2, hemoglobin 13.3, hematocrit 40.1, platelets 22 5. D-dimer 0.6. VBG with a pH of 7.2 and pCO2 of 72. Most recent CMP: Sodium 140, potassium 3.5, chloride 109, serum bicarb 17, BUN 7, creatinine 0.63, glucose 192. Troponins not elevated. NT proBNP 100. Denies sick contacts. Viral screen negative for influenza, RSV, COVID. She did have a low-grade temperature of 100 F on arrival. Current vitals: Temperature 97.7 F, heart rate 89 bpm, blood pressure 116/54 mmHg, SpO2 98% on 2 L/min nasal cannula, nontachypneic. Review of Systems Constitutional: Denies chills, Denies fever, Denies poor appetite, Denies weight gain, Denies weight loss Ears, nose, mouth and throat: Denies headache, Denies nasal congestion, Denies nasal discharge, Denies post-nasal drip, Denies sinus pain, Denies sinus pressure, Denies sore throat Cardiovascular: Denies chest pain, Denies edema, Denies irregular heart beat, D enies lightheadedness, Denies orthopnea, Denies palpitations, Denies paroxysmal nocturnal dyspnea Respiratory: Reports cough, Reports dyspnea, Reports wheezing, Denies cough with sputum, Denies hemoptysis Genitourinary: Denies dysuria, Denies flank pain, Denies hematuria, Denies urinary frequency Musculoskeletal: Denies limitation of motion Integumentary: Denies rash Neurological: Denies seizures, Denies syncope Psychiatric: Reports anxiety, Reports depression, Denies suicidal ideation Past Medical History Past Medical History: Asthma, COPD, Seizure Disorder Additional Past Medical History / Comment(s): Last seizure was in high school. History of Any Multi-Drug Resistant Organisms: None Reported Additional Past Surgical History / Comment(s): oral Additional Past Anesthesia/Blood Transfusion Reaction / Comment(s): none Past Psychological History: Anxiety Past Alcohol Use History: Occasional Past Drug Use History: None Reported - Past Family History Mother Family Medical History: Diabetes Mellitus, Hypertension Medications and Allergies Home Medications Medication Instructions Recorded Confirmed Type Albuterol Inhaler [Ventolin Hfa 1 - 2 puff INHALATION RT-Q6H PRN 06/06/14 10/22/17 History Inhaler] EPINEPHrine (Auto Inject) [Epipen] 0.3 mg IM ONCE PRN 06/06/14 10/22/17 History Fluticasone Propion/Salmeterol 1 puff INHALATION RT-BID 06/06/14 10/22/17 History [Advair 500-50 Diskus] levalbuterol HCL [Xopenex 1.25 mg INHALATION RT-TID PRN 06/06/14 10/22/17 History Nebulized] Montelukast [Singulair] 10 mg PO HS #30 tab 06/08/14 10/22/17 Rx ALPRAZolam [Xanax] 0.25 mg PO DAILY PRN 10/22/17 10/22/17 History ARIPiprazole [Abilify] 10 mg PO DAILY 10/22/17 10/22/17 History Betamethasone Dipropionate 1 applic TOPICAL DAILY 10/22/17 10/22/17 History [Betamethasone Dipropionate 0.05% Cream] Cholecalciferol [Vitamin D3 (25 1,000 unit PO DAILY 10/22/17 10/22/17 History Mcg = 1000 Iu)] [place]-3 Fatty Acids/Fish Oil [Fish 1 cap PO DAILY 10/22/17 10/22/17 History Oil 1,000 mg Softgel] Sertraline [Zoloft] 100 mg PO DAILY 10/22/17 10/22/17 History predniSONE 0 mg PO DIRECTED #10 tab 10/23/17 Rx Allergies Allergy/AdvReac Type Severity Reaction Status Date / Time cefixime [From Suprax] Allergy Severe Anaphylaxis Verified 10/22/17 23:53 egg Allergy Severe Anaphylaxis Verified 10/22/17 23:53 Latex, Natural Rubber Allergy Severe Anaphylaxis Verified 10/22/17 23:53 monosodium glutamate Allergy Severe Anaphylaxis Verified 10/22/17 23:53 peanut Allergy Severe Anaphylaxis Verified 10/22/17 23:53 soy Allergy Severe Anaphylaxis Verified 10/22/17 23:53 tree nut Allergy Severe Anaphylaxis Verified 10/22/17 23:53 beans Allergy Severe Anaphylaxis Uncoded 10/22/17 23:53 dairy Allergy Severe Anaphylaxis Uncoded 10/22/17 23:53 fragrence Allergy Intermediate Wheezing Uncoded 10/22/17 23:53 Physical Exam Vitals: Vital Signs Temp Pulse Resp BP Pulse Ox FiO2 06/05/24 03:58 35 06/05/24 03:00 89 19 116/54 95 06/05/24 02:00 94 18 118/65 96 06/05/24 01:10 102 H 18 114/68 99 06/05/24 01:00 97 17 107/61 99 06/05/24 00:50 102 H 25 H 107/61 06/05/24 00:40 104 H 27 H 107/61 06/05/24 00:30 107 H 26 H 103/51 100 06/05/24 00:20 105 H 13 103/51 06/05/24 00:10 105 H 14 103/51 06/05/24 00:00 105 H 8 L 119/66 06/04/24 23:50 104 H 10 L 119/66 06/04/24 23:40 108 H 17 119/66 06/04/24 23:30 112 H 18 132/67 06/04/24 23:20 112 H 26 H 132/67 06/04/24 23:19 35 06/04/24 23:12 113 H 7 L 132/67 06/04/24 23:10 97.7 F 112 H 24 132/67 100 06/04/24 23:00 113 H 28 H 116/48 100 06/04/24 22:50 106 H 18 116/48 99 06/04/24 22:40 110 H 10 L 116/48 100 06/04/24 22:30 109 H 18 117/71 100 06/04/24 22:20 106 H 16 117/71 100 06/04/24 22:10 105 H 10 L 117/71 100 06/04/24 22:04 110 H 15 117/71 100 06/04/24 21:22 125 H 06/04/24 21:09 126 H 06/04/24 20:45 125 H 25 H 142/80 100 06/04/24 19:54 138 H 37 H 108/93 100 06/04/24 19:39 149 H 06/04/24 19:26 35 06/04/24 19:12 147 H 06/04/24 19:09 100.0 F H 147 H 34 H 138/105 100 Intake and Output 06/04/24 06/04/24 06/05/24 14:59 22:59 06:59 Other: Weight 122.47 kg GENERAL EXAM: Alert, 34-year-old obese female, on BiPAP, no distress, playing on her phone. HEAD: Normocephalic and atraumatic EYES: Normal reaction of pupils, equal size. NOSE: Clear with pink turbinates. THROAT: No erythema or exudates. NECK: No masses, no JVD. CHEST: No chest wall deformity. LUNGS: Equal air entry with bilateral expiratory wheezing throughout. On BiPAP with settings 12/5 and FiO2 35%, nontachypneic, tidal volumes ranging around 500 mL. No conversational dyspnea or accessory muscle use.. CVS: S1 and S2 normal with no audible murmur, regular rhythm. No extra heart sounds ABDOMEN: No hepatosplenomegaly, active bowel sounds, no guarding or rigidity. SPINE: No scoliosis or deformity SKIN: No rashes CENTRAL NERVOUS SYSTEM: No focal deficits, tone is normal in all 4 extremities. EXTREMITIES: There is no peripheral edema, clubbing, or cyanosis. Peripheral pulses are intact. Results - Laboratory Findings CBC and BMP: 06/05/24 01:13 06/05/24 01:13 PT/INR, D-dimer PT 10.5 sec (10.0-12.5) 06/04/24 19:18 INR 0.9 (<1.2) 06/04/24 19:18 D-Dimer 0.60 mg/L FEU (<0.60) H 06/04/24 19:18 Abnormal lab findings: Abnormal Labs 06/04/24 06/04/24 06/04/24 19:18 19:18 19:18 WBC 13.7 H Neutrophils # 9.4 H Lymphocytes # Eosinophils # 0.8 H D-Dimer 0.60 H VBG pH VBG pCO2 Chloride Carbon Dioxide Glucose 119 H 06/04/24 06/05/24 06/05/24 19:18 01:13 01:13 WBC 13.2 H Neutrophils # 12.3 H Lymphocytes # 0.6 L Eosinophils # D-Dimer VBG pH 7.20 L* VBG pCO2 72 H* Chloride 109 H Carbon Dioxide 17 L Glucose 192 H - Diagnostic Findings Chest x-ray: image reviewed Assessment and Plan Assessment: Acute exacerbation of severe chronic bronchial asthma, possibly secondary to environmental exposure Acute hypercapnic and hypercapnic respiratory failure, initially placed on BiPAP, secondary to above Acute leukocytosis Obesity, with a BMI of 42.3 kg/m History of anxiety/depression Plan: Patient's medications, labs, chest x-ray reviewed Patient was transition from BiPAP to 2 L/min nasal cannula No acute cardiopulmonary process noted on chest x-ray Isolated fever in the emergency department, will empirically cover the patient on doxycycline Viral screen negative for influenza, RSV, COVID Continue combination of DuoNebs [id number], Symbicort inhaler, and IV Solu-Medrol We will continue to follow, additional recommendations to follow I have personally seen and examined the patient, performed the documentation and the assessment and plan as written. Number of minutes spent on the visit:20 Time with Patient: Greater than 30
--- NOTE | 2024-06-05 07:45 | XR ---
EXAMINATION TYPE: XR chest 1V DATE OF EXAM: 06/05/2024 5:28 AM COMPARISON: 06/04/2024 CLINICAL INDICATION: Female, 34 years old with history of sob, TECHNIQUE: XR chest 1V view(s) obtained. FINDINGS: The heart size is normal. The pulmonary vasculature is normal. The lungs are clear. IMPRESSION: 1. No acute pulmonary process. [facility], , 06/05/2024 7:43 AM
[2024-06-05] MEDS: SYMBICORT 160-4.5 MCG INHALER INHALATION SCH (07:49)
[2024-06-05] MEDS: IPRATROPIUM-ALBUTEROL 3 ML NEB INHALATION SCH (07:49)
[2024-06-05] MEDS: DOXYCYCLINE 100 MG CAP PO SCH (08:17)
[2024-06-05] MEDS ORDERED: ALPRAZolam 0.25 MG TAB PO PRN (13:31)
[2024-06-05] MEDS: ACETAMINOPHEN TAB 325 MG TAB PO PRN (22:25)
[2024-06-05] MEDS: ACETAMINOPHEN TAB 325 MG TAB PO STA (22:28)
--- NOTE | 2024-06-06 01:38 | HP ---
HISTORY AND PHYSICAL CHIEF COMPLAINT: Shortness of breath. HISTORY OF PRESENT ILLNESS: This is a 34-year-old woman with a past medical history of bronchial asthma, who is admitted with significant shortness of breath. The patient had used BiPAP. The respiratory difficulties are increasing and the patient also was apparently exposed to environmental factors which might have contributed to the asthma exacerbation at this time. Chest x-ray showed increased bronchovascular markings and no evidence of any definite pneumonia. The viral panel is negative. PAST MEDICAL HISTORY: Reviewed include asthma, COPD, seizure disorder. Rest of the history and rest of the chart is also reviewed. HOME MEDICATIONS: Reviewed include Xanax. Dose and rest of medications reviewed. ALLERGIES: Reviewed include cefixime. FAMILY HISTORY: Diabetes mellitus and hypertension. SOCIAL HISTORY: Occasional alcohol. REVIEW OF SYSTEMS: Fourteen-point review of systems is negative except as mentioned earlier. PHYSICAL EXAMINATION: VITAL SIGNS: Pulse is 100, blood pressure 120/77, respirations 18. CHEST: A few scattered rhonchi and crackles. ABDOMEN: Soft, nontender. LEGS: No edema. NERVOUS SYSTEM: Nonfocal. SKIN: No ulcer, rash, bleeding. JOINTS: No active deforming arthropathy. LABORATORY DATA: Reviewed. ASSESSMENT: 1. Acute bronchial asthma, chronic obstructive pulmonary disease acute exacerbation with acute hypoxic respiratory failure, on BiPAP. 2. Seizure disorder. 3. History of anxiety. 4. Elevated WBC. RECOMMENDATIONS AND DISCUSSION: This is a 34-year-old woman, who presented with multiple complex medical issues, we will monitor the patient closely. Continue current management. Continue symptomatic treatment, empiric antibiotics, bronchodilators, steroids. Closely follow with Pulmonary. Guarded prognosis because of multiple complex medical issues. Further recommendations to follow. MMODL / IJN: [id number] /
[2024-06-06 06:20] LABS: Glucose,Whole Blood 136 mg/dL (70-110)
[2024-06-06] MEDS: PANTOPRAZOLE 40 MG TABLET PO SCH (06:22)
[2024-06-06] MEDS: CALCIUM CARB-VIT D 500 MG-5 MCG TAB PO SCH (07:50)
[2024-06-06] MEDS: CHOLECALCIFEROL 125 MCG (5000 IU) TABLET PO SCH (07:51)
[2024-06-06] MEDS: MULTIVITAMINS, THERA 1 EACH TAB PO SCH (07:52)
[2024-06-06 08:30] LABS: Basophils % (A) 0 %; Eosinophils % (A) 0 %; HCT 38.8 % (34.0-46.0); HGB 13.2 gm/dL (11.4-16.0); Lymphocytes # (A) 1.1 k/uL (1.0-4.8); Lymphocytes % (A) 7 %; MCH 31.6 pg (25.0-35.0); Mean Platelet Volume 8.5; Monocytes # (A) 0.5 k/uL (0-1.0); Monocytes % (A) 3 %; Neutrophils # (A) 13.9 k/uL (1.3-7.7); Neutrophils % (A) 89 %; Platelet Count 221 k/uL (150-450); RBC 4.17 m/uL (3.80-5.40); RDW 12.5 % (11.5-15.5); WBC 15.6 k/uL (3.8-10.6)
[2024-06-06 08:48] LABS: African American GFR (CKD) >90 (>60 ml/min/1.73 sqM); Anion Gap 7 mmol/L; Blood Urea Nitrogen 11 mg/dL (7-17); Calcium 9.3 mg/dL (8.4-10.2); Carbon Dioxide 25 mmol/L (22-30); Chloride 107 mmol/L (98-107); Glucose 135 mg/dL (74-99); Non-African American GFR(CKD) >90 (>60 ml/min/1.73 sqM); Potassium 4.4 mmol/L (3.5-5.1); Sodium 139 mmol/L (137-145)
[2024-06-06 11:23] LABS: Glucose,Whole Blood 137 mg/dL (70-110)
--- NOTE | 2024-06-06 12:06 | P.HPIM ---
History of Present Illness This is a pleasant 34 years old female who presents because of worsening dyspnea on coughing and respiratory distress secondary to acute asthma exacerbation, Patient awake and alert and reports improvement in his breathing but she is not quite at her baseline. She still has some wheezing and coughing with some phlegm. But no chest pain. No other GI/ symptom. She states she has a dog at home but she thinks its hygienic dog and she thinks her asthma exacerbation was secondary to her work. She had some low-grade fever on admission but no more fever. She is currently on 2 L oxygen with saturation 97 to 100% Labs showing mild leukocytosis about 15,000 but she is also on steroids. Currently she is kept on doxycycline and IV Solu-Medrol. Review of Systems Review of systems CONSTITUTIONAL: No fever, no malaise, no fatigue. HEENT: No recent visual problems or hearing problems. Denied any sore throat. CARDIOVASCULAR: No orthopnea, PND, no palpitations, no syncope. PULMONARY: No chest wall tenderness , no hemoptysis. GASTROINTESTINAL: No diarrhea, no nausea, no vomiting, no abdominal pain. Normoactive bowel sounds. NEUROLOGICAL: No headaches, no weakness, no numbness. HEMATOLOGICAL: Denies any bleeding or petechiae. GENITOURINARY: Denies any burning micturition, frequency, or urgency. MUSCULOSKELETAL/RHEUMATOLOGICAL: Denies any joint pain, swelling, or any muscle pain. ENDOCRINE: Denies any polyuria or polydipsia. Past Medical History Past Medical History: Asthma, COPD, Seizure Disorder Additional Past Medical History / Comment(s): Last seizure was in 2001. History of Any Multi-Drug Resistant Organisms: None Reported Past Surgical History: No Surgical Hx Reported Additional Past Surgical History / Comment(s): [place] teeth. Past Anesthesia/Blood Transfusion Reactions: Previous Problems w/ Anesthesia Additional Past Anesthesia/Blood Transfusion Reaction / Comment(s): Combative when awoken anesthesia. Past Psychological History: Anxiety, Depression Additional Psychological History / Comment(s): Pt states she "may have other stuff" but never diagnosed. Smoking Status: Never smoker Past Alcohol Use History: Occasional Past Drug Use History: None Reported - Past Family History Mother Family Medical History: Diabetes Mellitus, Hypertension Medications and Allergies Home Medications Medication Instructions Recorded Confirmed Type Albuterol Inhaler [Ventolin Hfa 1 - 2 puff INHALATION RT-Q6H PRN 06/06/14 06/05/24 History Inhaler] Fluticasone Propion/Salmeterol 1 puff INHALATION RT-BID 06/06/14 06/05/24 History [Advair 500-50 Diskus] Montelukast [Singulair] 10 mg PO HS #30 tab 06/08/14 06/05/24 Rx ALPRAZolam [Xanax] 0.25 mg PO DAILY PRN 06/05/24 06/05/24 History Albuterol Nebulized [Ventolin 2.5 mg INHALATION RT-Q4H PRN 06/05/24 06/05/24 History Nebulized] Calcium Carb-Vit D 500Mg-5Mcg 1 tab PO DAILY 06/05/24 06/05/24 History [Oscal 500+D 5 Mcg (200 Iu)] Cholecalciferol [Vitamin D3 (125 125 mcg PO DAILY 06/05/24 06/05/24 History Mcg = 5000 Iu)] FLUoxetine HCL [PROzac] 20 mg PO DAILY 06/05/24 06/05/24 History Multivitamins, Thera [Multivitamin 1 tab PO DAILY 06/05/24 06/05/24 History (formulary)] Allergies Allergy/AdvReac Type Severity Reaction Status Date / Time cefixime [From Suprax] Allergy Severe Anaphylaxis Verified 06/05/24 08:50 egg Allergy Severe Anaphylaxis Verified 06/05/24 08:50 Latex, Natural Rubber Allergy Severe Anaphylaxis Verified 06/05/24 08:50 monosodium glutamate Allergy Severe Anaphylaxis Verified 06/05/24 08:50 peanut Allergy Severe Anaphylaxis Verified 06/05/24 08:50 soy Allergy Severe Anaphylaxis Verified 06/05/24 08:50 tree nut Allergy Severe Anaphylaxis Verified 06/05/24 08:50 Milk Containing Products Allergy Anaphylaxis Verified 06/05/24 08:50 (Dairy) [Dairy] beans Allergy Severe Anaphylaxis Uncoded 06/05/24 08:50 fragrence Allergy Intermediate Wheezing Uncoded 06/05/24 08:50 Physical Exam Vitals: Vital Signs Temp Pulse Pulse Resp BP BP Pulse Ox 06/06/24 11:44 22 97 06/06/24 11:05 98.0 F 91 24 124/73 100 06/06/24 09:04 106 H 06/06/24 08:53 108 H 06/06/24 07:57 97.8 F 71 20 135/89 93 L 06/06/24 07:43 71 06/06/24 04:00 97.9 F 89 20 121/73 98 06/05/24 23:35 97.9 F 83 18 135/84 97 06/05/24 23:16 98.0 F 92 19 124/75 94 L 06/05/24 21:04 112 H 06/05/24 20:52 106 H 06/05/24 20:00 98 18 112/61 95 06/05/24 17:11 101 H 19 95 06/05/24 16:14 98.1 F 108 H 19 123/74 98 06/05/24 15:29 96 06/05/24 15:19 94 06/05/24 14:18 22 95 Intake and Output 06/05/24 06/06/24 06/06/24 22:59 06:59 14:59 Intake Total 118 Balance 118 Intake: Oral 118 Other: Voiding Method Toilet Toilet # Voids 1 Weight 121.7 kg -GENERAL: The patient is alert and oriented x3, not in any acute distress. Well developed, well nourished. Obese HEENT: Pupils are round and equally reacting to light. EOMI. No scleral icterus. No conjunctival pallor. Normocephalic, atraumatic. No pharyngeal erythema. No thyromegaly. CARDIOVASCULAR: S1 and S2 present. No murmurs, rubs, or gallops. -PULMONARY: Chest is clear to auscultation, no bilateral scattered wheezing , no crackles. ABDOMEN: Soft, nontender, nondistended, normoactive bowel sounds. No palpable organomegaly. MUSCULOSKELETAL: No joint swelling or deformity. EXTREMITIES: No cyanosis, clubbing, or pedal edema. NEUROLOGICAL: Gross neurological examination did not reveal any focal deficits. SKIN: No rashes. no petechiae. Results CBC & Chem 7: 06/06/24 07:39 06/06/24 07:39 Labs: Abnormal Lab Results - Last 24 Hours (Table) 06/06/24 06/06/24 06/06/24 Range/Units 06:18 07:39 07:39 WBC 15.6 H (3.8-10.6) k/uL Neutrophils # 13.9 H (1.3-7.7) k/uL Glucose 135 H (74-99) mg/dL POC Glucose (mg/dL) 136 H (70-110) mg/dL 06/06/24 Range/Units 11:22 WBC (3.8-10.6) k/uL Neutrophils # (1.3-7.7) k/uL Glucose (74-99) mg/dL POC Glucose (mg/dL) 137 H (70-110) mg/dL Thrombosis Risk Factor Assmnt - Choose All That Apply Each Factor Represents 1 point: Abnormal pulmonary function (COPD), Obesity (BMI >25) Thrombosis Risk Factor Assessment Total Risk Factor Score: 2 Thrombosis Risk Factor Assessment Level: Low Risk Assessment and Plan Assessment: Acute asthma exacerbation Acute hypoxic respiratory failure Obesity with BMI of 42 Plan: Continue with IV Solu-Medrol 60 mg Continue with doxycycline Continue with pulmonary team consult Monitor vitals and oxygen Continue with bronchodilator Labs and medication were reviewed.. Continue same treatment. Continue with symptomatic treatment. Resume home medication. Monitor labs and vitals. DVT and GI prophylaxis. Further recommendations as per clinical course of the patient DVT prophylaxis: Subcutaneous Lovenox GI Prophylaxis: Pepcid Prognosis is guarded
--- NOTE | 2024-06-06 15:43 | P.PN ---
Subjective Progress Note Date: 06/06/24 Principal diagnosis: Shortness of breath. Patient is a 34-year-old female with past medical history significant for severe chronic bronchial asthma. Uses combination of Advair and albuterol while at home. She has had no recent ER visits in the last year. Uses her rescue inhal er on average 1 time per day. Currently, does not have a primary care provider or crate liner, she is just moved back from [place]. 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 States that about 2 weeks ago, she was at a job site and exposed to significant drywall dust and insulation, which flared up her asthma. She was not wearing her mask. Her respiratory status never really returned to baseline. Denies smoking. She denies any infectious-like symptoms. Although, has had a persistent nonproductive cough and wheezing. She presented to emergency department yesterday in a state of respiratory distress and was placed on BiPAP with initial settings 12/5 with an FiO2 currently 35%. She is not tachypneic. She is achieving tidal volumes around 500. She is alert and calm. I was able to easily wean her down to 2 L/min nasal cannula. Chest x-ray does not show any focal consolidations or pneumonia. CBC: WBC count 13.2, hemoglobin 13.3, hematocrit 40.1, platelets 22 5. D-dimer 0.6. VBG with a pH of 7.2 and pCO2 of 72. Most recent CMP: Sodium 140, potassium 3.5, chloride 109, serum bicarb 17, BUN 7, creatinine 0.63, glucose 192. Troponins not elevated. NT proBNP 100. Denies sick contacts. Viral screen negative for influenza, RSV, COVID. She did have a low-grade temperature of 100 F on arrival. Current vitals: Temperature 97.7 F, heart rate 89 bpm, blood pressure 116/54 mmHg, SpO2 98% on 2 L/min nasal cannula, nontachypneic. Progress note dated June 06, 2024. 34-year-old female that we saw yesterday in consultation in the emergency department. The patient has a history of severe chronic bronchial asthma. She just moved back to [place] from [place], and does not have a family doctor or crate liner in the area. Today, she is seen in room 375. She is on room air. No IV fluids. She is feeling much better. She will likely end up coming to see me in the office. Current labs include a white count 15.6, hemoglobin 13.2, hematocrit 38.8, and a platelet count of 221,000. Sodium 139, potassium 4.4, chlorides 107, CO2 25, BUN 11, creatinine 0.65. Glucose is 137. Procalcitonin level was 0.07. Objective - Vital Signs Vital signs: Vital Signs Temp 97.4 F L 06/06/24 15:18 Pulse 80 06/06/24 15:18 Resp 20 06/06/24 15:18 BP 128/84 06/06/24 15:18 Pulse Ox 96 06/06/24 15:18 FiO2 35 06/05/24 03:58 Intake & Output 06/05/24 06/06/24 06/06/24 18:59 06:59 18:59 Intake Total 236 Balance 236 Weight 121.7 kg Intake: Oral 236 Other: Voiding Method Toilet Toilet # Voids 1 2 - Exam No acute distress, oriented 3. HEENT examination is grossly unremarkable. Mucous membranes are moist. No oral lesions. Neck supple. Full range of motion. No adenopathy thyromegaly or neck vein distention. Cardiovascular examination reveals regular rhythm rate. S1-S2 normal. No S3 or S4. No discernible murmur noted. Lungs reveal bilateral expiratory wheezes and rhonchi. No crackles. Breath sounds are equal bilaterally. Breath sounds were improved compared to exam yesterday. Abdomen soft bowel sounds are heard. No masses or tenderness. Extremities are intact. No cyanosis clubbing or edema. Skin is without rash or lesion. Neurologic examination is brief but nonfocal. - Labs CBC & Chem 7: 06/06/24 07:39 06/06/24 07:39 Labs: Abnormal Lab Results - Last 24 Hours (Table) 06/06/24 06/06/24 06/06/24 Range/Units 06:18 07:39 07:39 WBC 15.6 H (3.8-10.6) k/uL Neutrophils # 13.9 H (1.3-7.7) k/uL Glucose 135 H (74-99) mg/dL POC Glucose (mg/dL) 136 H (70-110) mg/dL 06/06/24 Range/Units 11:22 WBC (3.8-10.6) k/uL Neutrophils # (1.3-7.7) k/uL Glucose (74-99) mg/dL POC Glucose (mg/dL) 137 H (70-110) mg/dL Assessment and Plan Assessment: Acute exacerbation of severe chronic bronchial asthma. Acute hypercapnic and hypercapnic respiratory failure, initially placed on BiPA P, secondary to above. Acute leukocytosis. Obesity, with a BMI of 42.3 kg/m. History of anxiety/depression. Plan: Plan dated June 06, 2024. The patient is seen today in room 375. The patient will need to see a crate liner postdischarge. She will also have to establish herself with a family doctor. Currently, she is on room air. No IV fluids. She is doing much better today than she was yesterday when we saw her in the emergency department. She continues on Symbicort, doxycycline, DuoNebs, and Solu-Medrol. Because her procalcitonin level was normal, doxycycline will be discontinued. Additional recommendations and suggestions are forthcoming. Time with Patient: Less than 30
[2024-06-06 16:41] LABS: Glucose,Whole Blood 108 mg/dL (70-110)
[2024-06-06 20:10] LABS: Glucose,Whole Blood 149 mg/dL (70-110)
[2024-06-07 05:56] LABS: Glucose,Whole Blood 122 mg/dL (70-110)
[2024-06-07] MEDS: ENOXAPARIN 40 MG/0.4 ML SYRINGE SQ SCH (07:57)
[2024-06-07 11:50] LABS: Glucose,Whole Blood 124 mg/dL (70-110)
--- NOTE | 2024-06-07 14:18 | P.PN ---
Subjective This is a pleasant 34 years old female who presents because of worsening dyspnea on coughing and respiratory distress secondary to acute asthma exacerbation, Patient awake and alert and reports improvement in his breathing but she is not quite at her baseline. She still has some wheezing and coughing with some phlegm. But no chest pain. No other GI/ symptom. She states she has a dog at home but she thinks its hygienic dog and she thinks her asthma exacerbation was secondary to her work. She had some low-grade fever on admission but no more fever. She is currently on 2 L oxygen with saturation 97 to 100% Labs showing mild leukocytosis about 15,000 but she is also on steroids. Currently she is kept on doxycycline and IV Solu-Medrol. 06/07/24 Patient still complaining from wheezing but is improved Discussed with the bedside nurse, patient qualified for home oxygen She still has scattered wheezing Remains on steroids Possible discharge 24 to 48 hours if she keeps improving Objective - Vital Signs Vital signs: Vital Signs Temp 97.5 F L 06/07/24 13:12 Pulse 82 06/07/24 13:12 Resp 20 06/07/24 13:12 BP 155/84 06/07/24 13:12 Pulse Ox 93 L 06/07/24 13:12 FiO2 35 06/05/24 03:58 Intake & Output 06/06/24 06/07/24 06/07/24 18:59 06:59 18:59 Intake Total 236 10 Balance 236 10 Intake: IV 10 Invasive Line 2 10 Oral 236 Other: Voiding Method Toilet Toilet Toilet # Voids 2 2 1 - Exam GENERAL: The patient is alert and oriented x3, not in any acute distress. Well developed, well nourished. HEENT: Pupils are round and equally reacting to light. EOMI. No scleral icterus. No conjunctival pallor. Normocephalic, atraumatic. No pharyngeal erythema. No thyromegaly. CARDIOVASCULAR: S1 and S2 present. No murmurs, rubs, or gallops. -PULMONARY: Chest is clear to auscultation, improved bilateral o wheezing , no crackles. ABDOMEN: Soft, nontender, nondistended, normoactive bowel sounds. No palpable organomegaly. MUSCULOSKELETAL: No joint swelling or deformity. EXTREMITIES: No cyanosis, clubbing, or pedal edema. NEUROLOGICAL: Gross neurological examination did not reveal any focal deficits. SKIN: No rashes. no petechiae. - Labs CBC & Chem 7: 06/06/24 07:39 06/06/24 07:39 Labs: Abnormal Lab Results - Last 24 Hours (Table) 06/06/24 06/07/24 06/07/24 Range/Units 20:06 05:55 11:49 POC Glucose (mg/dL) 149 H 122 H 124 H (70-110) mg/dL Assessment and Plan Assessment: Acute asthma exacerbation Acute hypoxic respiratory failure Obesity with BMI of 42 Plan: Continue with IV Solu-Medrol 60 mg Continue with doxycycline Continue with pulmonary team consult Monitor vitals and oxygen Continue with bronchodilator Labs and medication were reviewed.. Continue same treatment. Continue with symptomatic treatment. Resume home medication. Monitor labs and vitals. DVT and GI prophylaxis. Further recommendations as per clinical course of the patient DVT prophylaxis: Subcutaneous Lovenox GI Prophylaxis: Pepcid Prognosis is guarded
--- NOTE | 2024-06-07 14:19 | P.PN ---
Subjective Progress Note Date: 06/07/24 Principal diagnosis: Shortness of breath. Patient is a 34-year-old female with past medical history significant for severe chronic bronchial asthma. Uses combination of Advair and albuterol while at home. She has had no recent ER visits in the last year. Uses her rescue inhal er on average 1 time per day. Currently, does not have a primary care provider or director of revenue, she is just moved back from [place]. 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 States that about 2 weeks ago, she was at a job site and exposed to significant drywall dust and insulation, which flared up her asthma. She was not wearing her mask. Her respiratory status never really returned to baseline. Denies smoking. She denies any infectious-like symptoms. Although, has had a persistent nonproductive cough and wheezing. She presented to emergency department yesterday in a state of respiratory distress and was placed on BiPAP with initial settings 12/5 with an FiO2 currently 35%. She is not tachypneic. She is achieving tidal volumes around 500. She is alert and calm. I was able to easily wean her down to 2 L/min nasal cannula. Chest x-ray does not show any focal consolidations or pneumonia. CBC: WBC count 13.2, hemoglobin 13.3, hematocrit 40.1, platelets 22 5. D-dimer 0.6. VBG with a pH of 7.2 and pCO2 of 72. Most recent CMP: Sodium 140, potassium 3.5, chloride 109, serum bicarb 17, BUN 7, creatinine 0.63, glucose 192. Troponins not elevated. NT proBNP 100. Denies sick contacts. Viral screen negative for influenza, RSV, COVID. She did have a low-grade temperature of 100 F on arrival. Current vitals: Temperature 97.7 F, heart rate 89 bpm, blood pressure 116/54 mmHg, SpO2 98% on 2 L/min nasal cannula, nontachypneic. Progress note dated June 06, 2024. 34-year-old female that we saw yesterday in consultation in the emergency department. The patient has a history of severe chronic bronchial asthma. She just moved back to [place] from [place], and does not have a family doctor or director of revenue in the area. Today, she is seen in room 375. She is on room air. No IV fluids. She is feeling much better. She will likely end up coming to see me in the office. Current labs include a white count 15.6, hemoglobin 13.2, hematocrit 38.8, and a platelet count of 221,000. Sodium 139, potassium 4.4, chlorides 107, CO2 25, BUN 11, creatinine 0.65. Glucose is 137. Procalcitonin level was 0.07. Progress note dated June 07, 2024. 30-year-old female with a history of severe persistent asthma. The patient is currently seen today in room 375. She is on 2 L of oxygen. She is not receiving any IV fluids. Currently, the patient is on appropriate medications. Back in [place], the patient is maintained on Advair 500/51 puff twice a day, singular, and a rescue inhaler. The patient apparently has never seen a director of revenue in the past. No new labs today other than a glucose of 124. Objective - Vital Signs Vital signs: Vital Signs Temp 97.5 F L 06/07/24 13:12 Pulse 82 06/07/24 13:12 Resp 20 06/07/24 13:12 BP 155/84 06/07/24 13:12 Pulse Ox 93 L 06/07/24 13:12 FiO2 35 06/05/24 03:58 Intake & Output 06/06/24 06/07/24 06/07/24 18:59 06:59 18:59 Intake Total 236 10 Balance 236 10 Intake: IV 10 Invasive Line 2 10 Oral 236 Other: Voiding Method Toilet Toilet Toilet # Voids 2 2 1 - Exam No acute distress, oriented 3. HEENT examination is grossly unremarkable. Mucous membranes are moist. No oral lesions. Neck supple. Full range of motion. No adenopathy thyromegaly or neck vein distention. Cardiovascular examination reveals regular rhythm rate. S1-S2 normal. No S3 or S4. No discernible murmur noted. Lungs reveal bilateral expiratory wheezes and rhonchi. No crackles. Breath sounds are equal bilaterally. Abdomen soft bowel sounds are heard. No masses or tenderness. Extremities are intact. No cyanosis clubbing or edema. Skin is without rash or lesion. Neurologic examination is brief but nonfocal. - Labs CBC & Chem 7: 06/06/24 07:39 06/06/24 07:39 Labs: Abnormal Lab Results - Last 24 Hours (Table) 06/06/24 06/07/24 06/07/24 Range/Units 20:06 05:55 11:49 POC Glucose (mg/dL) 149 H 122 H 124 H (70-110) mg/dL Assessment and Plan Assessment: Acute exacerbation of severe chronic bronchial asthma. Acute hypercapnic and hypercapnic respiratory failure, initially placed on BiPAP, secondary to above. Acute leukocytosis. Obesity, with a BMI of 42.3 kg/m. History of anxiety/depression. Plan: Plan dated June 06, 2024. The patient is seen today in room 375. The patient will need to see a director of revenue postdischarge. She will also have to establish herself with a family doctor. Currently, she is on room air. No IV fluids. She is doing much better today than she was yesterday when we saw her in the emergency department. She continues on Symbicort, doxycycline, DuoNebs, and Solu-Medrol. Because her procalcitonin level was normal, doxycycline will be discontinued. Additional recommendations and suggestions are forthcoming. Plan dated June 07, 2024. The patient apparently did qualify for home oxygen. She is on oxygen at 2 L. The patient has never seen a director of revenue in the past. She has severe persistent asthma. In [place], she was maintained on Advair, Singulair, and albuterol. The patient will follow-up in the office for complete pulmonary function testing, and recommendations as it relates to medications. She may benefit from a biologic such as Xolair, Fasenra, or Dupixent. Labs, x-rays, and medications are reviewed. Doxycycline was discontinued as her procalcitonin level was normal. Time with Patient: Less than 30
[2024-06-07 16:30] LABS: Glucose,Whole Blood 141 mg/dL (70-110)
[2024-06-07 20:19] LABS: Glucose,Whole Blood 106 mg/dL (70-110)
[2024-06-08 06:44] LABS: Glucose,Whole Blood 119 mg/dL (70-110)
[2024-06-08 08:59] VITALS: BP 121/77; RESP 16; TEMP 97.8
[2024-06-08 11:35] LABS: Glucose,Whole Blood 124 mg/dL (70-110)
[2024-06-08 12:05] VITALS: PULSE 76
--- NOTE | 2024-06-08 13:52 | P.PN ---
Subjective Progress Note Date: 06/08/24 Patient is a 34-year-old female with past medical history significant for severe chronic bronchial asthma. Uses combination of Advair and albuterol while at home. She has had no recent ER visits in the last year. Uses her rescue inhaler on average 1 time per day. Currently, does not have a primary care provider or tab cutting machine operator, she is just moved back from [place]. 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 States that about 2 weeks ago, she was at a job site and exposed to significant drywall dust and insulation, which flared up her asthma. She was not wearing her mask. Her respiratory status never really returned to baseline. Denies smoking. She denies any infectious-like symptoms. Although, has had a persistent nonproductive cough and wheezing. She presented to emergency department yesterday in a state of respiratory distress and was placed on BiPAP with initial settings 12/5 with an FiO2 currently 35%. She is not tachypneic. She is achieving tidal volumes around 500. She is alert and c jann. I was able to easily wean her down to 2 L/min nasal cannula. Chest x-ray does not show any focal consolidations or pneumonia. CBC: WBC count 13.2, hemoglobin 13.3, hematocrit 40.1, platelets 22 5. D-dimer 0.6. VBG with a pH of 7.2 and pCO2 of 72. Most recent CMP: Sodium 140, potassium 3.5, chloride 109, serum bicarb 17, BUN 7, creatinine 0.63, glucose 192. Troponins not elevated. NT proBNP 100. Denies sick contacts. Viral screen negative for influenza, RSV, COVID. She did have a low-grade temperature of 100 F on arrival. Current vitals: Temperature 97.7 F, heart rate 89 bpm, blood pressure 116/54 mmHg, SpO2 98% on 2 L/min nasal cannula, nontachypneic. Progress note dated June 06, 2024. 34-year-old female that we saw yesterday in consultation in the emergency depart ment. The patient has a history of severe chronic bronchial asthma. She just moved back to [place] from [place], and does not have a family doctor or tab cutting machine operator in the area. Today, she is seen in room 375. She is on room air. No IV fluids. She is feeling much better. She will likely end up coming to see me in the office. Current labs include a white count 15.6, hemoglobin 13.2, hematocrit 38.8, and a platelet count of 221,000. Sodium 139, potassium 4.4, chlorides 107, CO2 25, BUN 11, creatinine 0.65. Glucose is 137. Procalcitonin level was 0.07. Progress note dated June 07, 2024. 30-year-old female with a history of severe persistent asthma. The patient is currently seen today in room 375. She is on 2 L of oxygen. She is not receiving any IV fluids. Currently, the patient is on appropriate medications. Back in [place], the patient is maintained on Advair 500/51 puff twice a day, singular, and a rescue inhaler. The patient apparently has never seen a tab cutting machine operator in the past. No new labs today other than a glucose of 124. The patient is seen today June 08, 2024 in follow-up on the regular medical floor. She is currently sitting up in bed. Awake and alert in no acute distress. Maintaining good O2 saturations in the 90s on room air with ambulation. No worsening shortness of breath, cough or congestion. Glucose 124. She remains on DuoNeb and elations, Symbicort, Solu-Medrol. Lovenox for DVT prophylaxis. Objective - Vital Signs Vital signs: Vital Signs Temp 97.8 F 06/08/24 07:15 Pulse 76 06/08/24 12:05 Resp 16 06/08/24 07:15 BP 121/77 06/08/24 07:15 Pulse Ox 96 06/08/24 09:09 FiO2 35 06/05/24 03:58 Intake & Output 06/07/24 06/08/24 06/08/24 18:59 06:59 18:59 Intake Total 1020 Balance 1020 Intake: Oral 1020 Other: Voiding Method Toilet Toilet # Voids 1 3 - Exam GENERAL EXAM: Alert, active, pleasant 34-year-old female, on room air, comfortable in no apparent distress. HEAD: Normocephalic. EYES: Normal reaction of pupils, equal size. NOSE: Clear with pink turbinates. THROAT: No erythema or exudates. NECK: No masses, no JVD. CHEST: No chest wall deformity. LUNGS: Equal air entry with no crackles, wheeze, rhonchi or dullness. CVS: S1 and S2 normal with no audible murmur, regular rhythm. ABDOMEN: No hepatosplenomegaly, normal bowel sounds, no guarding or rigidity. SPINE: No scoliosis or deformity SKIN: No rashes CENTRAL NERVOUS SYSTEM: No focal deficits, tone is normal in all 4 extremities. EXTREMITIES: There is no peripheral edema. No clubbing, no cyanosis. Peripheral pulses are intact. - Labs CBC & Chem 7: 06/06/24 07:39 06/06/24 07:39 Labs: Abnormal Lab Results - Last 24 Hours (Table) 06/07/24 06/08/24 06/08/24 Range/Units 16:29 06:43 11:33 POC Glucose (mg/dL) 141 H 119 H 124 H (70-110) mg/dL Assessment and Plan Assessment: Acute exacerbation of severe chronic bronchial asthma. Acute hypercapnic and hypercapnic respiratory failure, initially placed on BiPAP, secondary to above. Acute leukocytosis. Obesity, with a BMI of 42.3 kg/m. History of anxiety/depression. Plan: The patient was seen and evaluated Labs and medications reviewed Trialed without oxygen O2 saturation stayed greater than 93% Cleared for discharge Continue albuterol, Singulair, Advair Continue a prednisone taper Follow-up with Dr. Jiang in our office in 1 week I have personally seen and examined the patient, performed the documentation and the assessment and plan as written. Number of minutes spent on the visit: 10 Dictation was produced using [employer] dictation software. Please excuse any grammatical, word or spelling errors. This patient was seen in coordination with the pulmonary/critical care physician, Dr. Jiang. He did spend greater than 50% of the time evaluating, examining and developing the plan of care. He agrees to the above HPI, physical exam, assessment and plan of care as dictated by the nurse practitioner.
--- NOTE | 2024-06-08 22:54 | P.DS ---
Providers Date of admission: 06/04/24 20:24 Attending physician: Bebo Noel Consults: 06/04/24 20:23 Consult Physician Routine Consulting Provider: Gus Mueller Consult Reason/Comments: respFail Do you want consulting provider notified?: Yes Primary care physician: Stated None Hospital Course: Diagnoses: Acute asthma exacerbation Acute hypoxic respiratory failure Obesity with BMI of 42 Hospital course: This is a pleasant 34 years old female who presents because of worsening dyspnea on coughing and respiratory distress secondary to acute asthma exacerbation, Patient awake and alert and reports improvement in his breathing but she is not quite at her baseline. She still has some wheezing and coughing with some phlegm. But no chest pain. No other GI/ symptom. Patient was evaluated by pulmonary service and she was treated with IV Solu- Medrol, patient showed interval improvement, wheezing significantly improved as well as her dyspnea and other symptoms Patient clinically stable for discharge Patient does not qualify for home oxygen when checked on the day of discharge Patient was cleared for discharge by pulmonary service Patient will be discharged on tapered prednisone Problems and management plan were discussed with the patient and he verbalized understanding and acceptance Patient was found stable and can be discharged home in guarded prognosis however he needs follow-up as an outpatient. Patient was instructed to follow up with PCP within one week and patient agrees Patient was instructed to follow-up with Dr. Jiang in 1 to 2 weeks and she agrees Physical exam Gen: patient is a AAOx3, no distress CVS: S1-S2, RRR, no murmur Lungs: B/L CTA, no wheezing Abdomen: soft, no distention, no tenderness, positive bowel sounds Extremity: no leg edema or induration Time spent more than 35 minutes Patient Condition at Discharge: Serious Plan - Discharge Summary Discharge Rx Participant: No New Discharge Prescriptions: New predniSONE 10 mg PO DIRECTED #40 tab Pantoprazole [Protonix] 40 mg PO AC-BRKFST #15 tab Continue Fluticasone Propion/Salmeterol [Advair 500-50 Diskus] 1 puff INHALATION RT- BID Albuterol Inhaler [Ventolin Hfa Inhaler] 1 - 2 puff INHALATION RT-Q6H PRN PRN Reason: Shortness Of Breath Montelukast [Singulair] 10 mg PO HS #30 tab Cholecalciferol [Vitamin D3 (125 Mcg = 5000 Iu)] 125 mcg PO DAILY Calcium Carb-Vit D 500Mg-5Mcg [Oscal 500+D 5 Mcg (200 Iu)] 1 tab PO DAILY Albuterol Nebulized [Ventolin Nebulized] 2.5 mg INHALATION RT-Q4H PRN PRN Reason: Shortness Of Breath Multivitamins, Thera [Multivitamin (formulary)] 1 tab PO DAILY FLUoxetine HCL [PROzac] 20 mg PO DAILY ALPRAZolam [Xanax] 0.25 mg PO DAILY PRN PRN Reason: Anxiety Discharge Medication List Albuterol Inhaler [Ventolin Hfa Inhaler] 1 - 2 puff INHALATION RT-Q6H PRN 06/06/14 [History] Fluticasone Propion/Salmeterol [Advair 500-50 Diskus] 1 puff INHALATION RT-BID 06/06/14 [History] Montelukast [Singulair] 10 mg PO HS #30 tab 06/08/14 [Rx] ALPRAZolam [Xanax] 0.25 mg PO DAILY PRN 06/05/24 [History] Albuterol Nebulized [Ventolin Nebulized] 2.5 mg INHALATION RT-Q4H PRN 06/05/24 [History] Calcium Carb-Vit D 500Mg-5Mcg [Oscal 500+D 5 Mcg (200 Iu)] 1 tab PO DAILY 06/05/24 [History] Cholecalciferol [Vitamin D3 (125 Mcg = 5000 Iu)] 125 mcg PO DAILY 06/05/24 [History] FLUoxetine HCL [PROzac] 20 mg PO DAILY 06/05/24 [History] Multivitamins, Thera [Multivitamin (formulary)] 1 tab PO DAILY 06/05/24 [History] Pantoprazole [Protonix] 40 mg PO AC-BRKFST #15 tab 06/08/24 [Rx] predniSONE 10 mg PO DIRECTED #40 tab 06/08/24 [Rx] Follow up Appointment(s)/Referral(s): Armand Jiang DO [Doctor of Osteopathic Medicine] - 06/13/24 2:15 pm [facility] [NON-STAFF] - 06/29/24 8:00 am [facility] [NON-STAFF] - 1 Week Patient Instructions/Handouts: Asthma (DC) Activity/Diet/Wound Care/Special Instructions: Low carbohydrate 1800 kcal/day Activity is restricted till you see your doctor Discharge/Stand Alone Forms: Area PCPs Discharge Disposition: HOME SELF-CARE
[2024-06-09] MEDS ORDERED: predniSONE 20 MG TAB PO SCH (09:00)
== END 2024-06-08 12:59 | disposition home or self-care (01) | DRG 190 ==
LOC: EC 19:08 → 3SCARD 20:24 → 4SSUR 06-07 16:05
PROVIDERS: ADMIT Hospitalist; ATTEND Hospitalist
PROC: 5A09357 Assistance with Respiratory Ventilation, Less than 24 Consecutive Hours, Continuous Positive Airway Pressure (ICD-10-PCS; principal; 2024-06-04)
DX: J44.1 Chronic obstructive pulmonary disease with (acute) exacerbation (principal); J96.01 Acute respiratory failure with hypoxia; J96.02 Acute respiratory failure with hypercapnia; J45.52 Severe persistent asthma with status asthmaticus; Z68.41 Body mass index [BMI] 40.0-44.9, adult; J44.0 Chronic obstructive pulmonary disease with (acute) lower respiratory infection; G40.909 Epilepsy, unspecified, not intractable, without status epilepticus; F41.9 Anxiety disorder, unspecified; Z11.52 Encounter for screening for COVID-19; D72.829 Elevated white blood cell count, unspecified; E66.9 Obesity, unspecified; F32.A Depression, unspecified; Z79.899 Other long term (current) drug therapy; Z82.49 Family history of ischemic heart disease and other diseases of the circulatory system; Z88.8 Allergy status to other drugs, medicaments and biological substances; Z91.012 Allergy to eggs; Z91.040 Latex allergy status; Z91.048 Other nonmedicinal substance allergy status
CPT/HCPCS: 36415; 71045; 80048; 80053; 82803; 83605; 83735; 83880; 84100; 84145; 84484; 85025; 85379; 85610; 85730; 87636; 93005; 94640; 94660; 94760; 96361; 96365; 96367; 96372; 96375; 96376; 99285